=== PATIENT | male | born 1945 | race African-American/Black ===

== ENCOUNTER 2021-11-18 13:20 | Outpatient (CLI) | payer MEDICARE, MEDICAID | END 2021-11-18 13:21 | disposition home or self-care (01) | LOC: CSHWCC 13:20 | PROVIDERS: ATTEND Nurse Practitioner Family | DX: L89.894 Pressure ulcer of other site, stage 4 (principal); L89.323 Pressure ulcer of left buttock, stage 3; L89.893 Pressure ulcer of other site, stage 3; L89.513 Pressure ulcer of right ankle, stage 3 | CPT/HCPCS: 87070; 87077; 87186; 87205; 97139; 97605; G0463; 99204 ==